=== PATIENT | male | born 1950 | race Caucasian/White ===

== ENCOUNTER 2018-09-16 08:22 | Emergency (ER) | payer OTHER, MEDICARE ==
--- NOTE | 2018-09-16 09:00 | ED Physician Chart ---
ED Chief Complaint/HPI - Patient Information Date Seen:: 09/16/18 Time Seen:: 08:45 Chief Complaint:: Low back pain for 2 days. History of Present Illness:: Pt is primarily [place] speaking. Interpretation is provided by my nurse Prasanna. Pt came in by private auto with his because of low back back after he impacted a stone fountain when he lost balance and fell off a 2-foot tall stepladder. Pt was evaluated and treated at an urgent care clinic. Pt still has significant back pain. His last analgesic use with Tylenol at about 0700 today. Pain can be precipitated and aggravated with movements. No LE weakness or numbness. No urinary or fecal incontinence or retention. Allergies:: Allergies Allergy/AdvReac Type Severity Reaction Status Date / Time morphine Allergy Verified 09/16/18 08:37 Vitals:: Vital Signs - 8 hr 09/16/18 08:41 Temp 96.4 F HR 64 RR 22 BP 159/79 O2 Sat % 100 Historian:: Patient Family MD/PCP:: Dr. Sanders LMP:: N/A Review:: Nurse's Note Reviewed ED Review of Systems - Review of Systems General/Constitutional: No fever, No weight loss, No weakness Skin: No skin lesions, No rash Head: No headache, No light-headedness Eyes: No loss of vision, No pain ENT: No earache, No nasal drainage, No sore throat Neck: No neck pain, No swelling, No stiffness Cardio Vascular: No chest pain Pulmonary: No SOB, No cough, No wheezing GI: No nausea, No vomiting, No diarrhea, No pain G/U: No dysuria, No frequency, No hematuria Musculoskeletal: Back pain Psychiatric: No prior psych history Allergic/Immuno: No urticaria, No angioedema Neurological: No syncope, No focal symptoms, No weakness, No paresthesia, No headache, No seizure, No dizziness, No confusion ED Past Medical History - Past Medical History Past Medical History: DM, Dyslipidemia Family History: None Social History: Non Smoker, No Alcohol, No Drug Use, , Other (lives with his .) Employment:: Retired. Surgical History: Appendectomy (about 11 y/a.) Psychiatricy History: None Medication: Reviewed Family Medical History - Family Member Mother History Unknown: Yes ED Physical Exam - Physical Examination General/Constitutional: Awake, Well-developed, well-nourished (male), Alert, No distress, GCS 15, Non-toxic appearing, Ambulatory Other Gen/Cons comments:: Breathes comfortably, speaks clearly, and interacts normally. Head: Atraumatic Eyes: Lids, conjuctiva normal, PERRL, EOMI Skin: Nl inspection, No ecchymosis, Well hydrated, No lymphadenopathy ENMT: External ears, nose nl, Nasal exam nl, Oropharynx nl Neck: Nontender, Full ROM w/o pain, No nuchal rigidity, No mass Respiratory: Nl effort/Exclusion, Clear to Auscultation, No Wheeze/Rhonchi/Rales Cardio Vascular: RRR, No murmur, gallop, rubs GI: No organomegaly, Normal BS's, Nondistended, No mass/bruits Other GI comments:: Tenderness with palpation at posterolateral aspect of left flank. There is mild swelling. No ecchymosis, erythema, or open wound. : No CVA tenderness Extremities: No tenderness or effusion, Full ROM, No edema Neuro/Psych: Alert/oriented (oriented x 3), DTR's symmetric, Normal sensory exam , Normal motor strength, Judgement/insight normal, Mood normal, No focal deficits Other Neuro/Psych comments:: Negative SLR's bilaterally. Other Misc comments:: There is tenderness with palpation at left upper lumbar, paralumbar region. No ecchymosis, erythema, gross deformity, swelling or open wound. ED Labs/Radiology/EKG Results - Lab Results Results: Laboratory Tests 09/16/18 09/16/18 09/16/18 08:30 09:20 09:20 WBC 7.1 RBC 5.12 Hgb 16.1 Hct 47.8 MCV 93.3 MCH 31.4 H MCHC Differential 33.6 RDW 13.0 Plt Count 130 L MPV 10.1 Neutrophils % 72.8 Lymphocytes % 19.7 L Monocytes % 6.1 Eosinophils % 0.5 Basophils % 0.9 PT 9.3 L INR 0.88 PTT (Actin FS) 25.2 L Sodium Potassium Chloride Carbon Dioxide Anion Gap BUN Creatinine Est GFR ( Amer) Est GFR (Non-Af Amer) BUN/Creatinine Ratio Glucose Calcium Total Bilirubin AST ALT Alkaline Phosphatase Total Protein Albumin Globulin Albumin/Globulin Ratio Urine Source CLEAN C Urine Color YELLOW Urine Clarity CLEAR Urine pH 6.0 Ur Specific [place] 1.015 Urine Protein TRACE Urine Glucose (UA) 100 H Urine Ketones NEGATIVE Urine Blood NEGATIVE Urine Nitrate NEGATIVE Urine Bilirubin NEGATIVE Urine Urobilinogen 0.2 Ur Leukocyte Esterase NEGATIVE Urine RBC 0-2 H Urine WBC 0-2 Ur Epithelial Cells RARE Urine Bacteria NONE SEEN 09/16/18 09:20 WBC RBC Hgb Hct MCV MCH MCHC Differential RDW Plt Count MPV Neutrophils % Lymphocytes % Monocytes % Eosinophils % Basophils % PT INR PTT (Actin FS) Sodium 134 L Potassium 4.5 Chloride 102 Carbon Dioxide 23.8 Anion Gap 12.7 BUN 25 Creatinine 1.3 Est GFR ( Amer) > 60.0 Est GFR (Non-Af Amer) 58.5 BUN/Creatinine Ratio 19.2 Glucose 145 H Calcium 9.2 Total Bilirubin 0.9 AST 31 ALT 57 H Alkaline Phosphatase 60 Total Protein 7.4 Albumin 4.5 Globulin 2.9 Albumin/Globulin Ratio 1.6 Urine Source Urine Color Urine Clarity Urine pH Ur Specific [place] Urine Protein Urine Glucose (UA) Urine Ketones Urine Blood Urine Nitrate Urine Bilirubin Urine Urobilinogen Ur Leukocyte Esterase Urine RBC Urine WBC Ur Epithelial Cells Urine Bacteria - Radiology Results Results: CT of abdomen/pelvis: No acute abnormalities. Enlarged prostate gland. Diverticulosis. Official report per Dr. Deo Mckeon, radiologist. CT Lumbar Spine: Questionable moderate to large disc protrusion/herniation L4-5 on the right side. Diffuse degenerative changes. Official report per Dr. Deo Mckeon, radiologist. ED Septic Shock - . Is Septic Shock (SBP<90, OR Lactate>4 mmol\L) present?: No - <6hrs of presentation: Vital Signs: Vital Signs - 8 hr 09/16/18 08:41 Temp 96.4 F HR 64 RR 22 BP 159/79 O2 Sat % 100 ED Reassessment (Disposition) - Reassessment Reassessment:: 10[address] Remaining lab results and CT reports just became available. Lab and CT findings have been reviewed with pt. Management plan has been discussed. Interpretation by my nurse Prasanna. 1105 Pt feels better and requests to go home now. Aftercare instructions have been given. Copies of lab results and CT reports have been given to pt to take to PCP Dr. Sanders for follow-up. Interpretation by my nurse Prasanna. Reassessment Condition:: Improved - Diagnosis Diagnosis:: Lumbar and left flank contusion. Stable. Degenerative joint disease of lumbar spine. Stable. Diabetes mellitus. Stable. - Aftercare/Follow up Instructions Aftercare/Follow-Up Instructions:: Refer to Discharge Instructions Notes:: Bed rest for today. May take Motrin 200 mg tab 3 to 4 tabs po q8h prn pain. Not to take first dose at least 6 hours after Toradol was given here. F/U with PCP Dr. Sanders in one day for recheck. Return to ER immediately if condition worsens or if any further questions/problems. Medication Prescribed:: None - Patient Disposition Discharge/Transfer:: Home Time:: 11:10 Condition at Disposition:: Stable, Improved
[2018-09-16 09:34] LABS: URINE SOURCE CLEAN C
[2018-09-16 09:45] LABS: INR 0.88 (0.5-1.4); PROTHROMBIN TIME (TEST) 9.3 SECONDS (9.5-11.5)
[2018-09-16 09:49] LABS: ALB/GLOB RATIO 1.6 (1.0-1.8); ALBUMIN 4.5 gm/dL (4.2-5.5); ALKALINE PHOSPHATASE 60 U/L (34-104); ANION GAP 12.7 (7.0-16.0); BILIRUBIN,TOTAL 0.9 mg/dL (0.3-1.0); BUN - UREA NITROGEN 25 mg/dL (7-25); CALCIUM SERUM 9.2 mg/dL (8.6-10.3); CARBON DIOXIDE 23.8 mEq/L (21.0-31.0); CHLORIDE 102 mEq/L (98-107); CREATININE - SERUM 1.3 mg/dL (0.7-1.3); GFR AFRICAN-AMERICAN > 60.0 ml/min (>90); GFR NON AFRICAN-AMERICAN 58.5 ml/min; GLUCOSE 145 mg/dL (70-105); POTASSIUM SERUM 4.5 mEq/L (3.5-5.1); SGOT 31 U/L (13-39); SGPT/ALT 57 U/L (7-52); SODIUM SERUM 134 mEq/L (136-145); TOTAL PROTEIN,SERUM 7.4 gm/dL (6.0-8.3)
[2018-09-16 09:49] LABS: URINE BILIRUBIN NEGATIVE (NEGATIVE); URINE BLOOD NEGATIVE (NEGATIVE); URINE GLUCOSE (UA) 100 mg/dL (NEGATIVE); URINE KETONE NEGATIVE (NEGATIVE); URINE LEUKOCYTE ESTERASE NEGATIVE (NEGATIVE); URINE MICROSCOPIC INDICATED? YES; URINE NITRATE NEGATIVE (NEGATIVE); URINE PROTEIN TRACE mg/dL (NEGATIVE); URINE UROBILINOGEN 0.2 E.U./dL (0.2 - 1.0)
--- NOTE | 2018-09-16 09:59 | Diagnostic Imaging Report ---
CT scan abdomen and pelvis without intravenous contrast HISTORY: Pain, trauma Total DLP equals 377 CTDI equals 7.4 Axial sections were obtained from the xiphoid process down to the pubic symphysis. No significant focal hepatic lesions are seen. The spleen appears normal. No focal abnormality seen within the pancreas. The adrenal glands appear normal. No focal renal lesions. No calculi. No hydronephrosis. No significant bowel dilatation. Colonic diverticula noted. Radiodensity noted along the margin of the cecum which may be related to prior appendectomy. Correlation with surgical history is needed. There is preservation of normal fat planes within the pelvis. No abnormal soft tissue masses or abnormal fluid collections. There is moderate enlargement of the prostate gland with encroachment on the floor of the urinary bladder. No other abnormal masses or fluid collections. IMPRESSION: 1. No acute abnormalities 2. Enlarged prostate gland 3. Diverticulosis
--- NOTE | 2018-09-16 10:02 | Diagnostic Imaging Report ---
CT scan lumbar spine HISTORY: Pain, trauma Total DLP equals 840 CTDI equals 30.6 Axial sections were obtained through the lumbar spine. Additional sagittal and coronal reformatted images are provided. Alignment is normal. Minimal narrowing of the L4-5 interspace. Degenerative spur formation noted about the anterior margins of multiple vertebrae. There is suggestion of a moderate to large the 4 to 5 mm) extradural density originating from the L4-5 level extending down along the right posterior margin of the body of L5. Disc protrusion/herniation cannot be excluded. An MRI exam would provide additional assessment and evaluation. There appears to be neural foraminal encroachment on the right side. IMPRESSION: 1. Questionable moderate to large disc protrusion/herniation L4-5 on the right side. An MRI examination would provide additional assessment and evaluation 2. Diffuse degenerative changes
[2018-09-16 10:05] LABS: URINE CLARITY CLEAR (CLEAR); URINE COLOR YELLOW
[2018-09-16 10:06] LABS: URINE BACTERIA NONE SEEN /hpf (NONE SEEN); URINE EPITHELIAL CELLS RARE /lpf (FEW); URINE RBC 0-2 /hpf (0-5); URINE WBC 0-2 /hpf (0-5)
[2018-09-16 10:18] LABS: % BASOPHILS 0.9 % (0.0-2.0); % EOSINOPHILS 0.5 % (0.0-5.0); % LYMPHOCYTES 19.7 % (20.0-50.0); % MONOCYTES 6.1 % (2.0-10.0); % NEUTROPHILS 72.8 % (40.0-80.0); BASOPHILE ABSOLUTE 0.1 Th/cumm (0-0.2); HEMATOCRIT 47.8 % (41.0-60); HEMOGLOBIN 16.1 gm/dL (12-16); LYMPHOCYTE ABSOLUTE 1.4 Th/cmm (1.5-3.0); MEAN CELL VOLUME 93.3 fl (80-99); MEAN CORPUSCULAR HEMOGLOBIN 31.4 pg (27.0-31.0); MEAN CORPUSCULAR HGB CONC 33.6 pg (28.0-36.0); MEAN PLATELET VOLUME 10.1 fl; MONOCYTE ABSOLUTE 0.4 Th/cmm (0.3-1.0); NEUTROPHILE ABSOLUTE 5.2 Th/cmm (1.8-8.0); PLATELET COUNT 130 Th/cmm (150-400); RED BLOOD COUNT 5.12 Mil/cmm (3.80-5.80); WHITE BLOOD COUNT 7.1 Th/cmm (4.8-10.8)
== END 2018-09-16 11:10 | disposition home or self-care (01) ==
LOC: ER 08:22
DX: S30.0XXA Contusion of lower back and pelvis, initial encounter (principal); S30.1XXA Contusion of abdominal wall, initial encounter; M51.36 Other intervertebral disc degeneration, lumbar region; E11.9 Type 2 diabetes mellitus without complications; E78.5 Hyperlipidemia, unspecified; Z90.49 Acquired absence of other specified parts of digestive tract; Z88.5 Allergy status to narcotic agent; W11.XXXA Fall on and from ladder, initial encounter; Y93.89 Activity, other specified; Y92.89 Other specified places as the place of occurrence of the external cause; Y99.8 Other external cause status
CPT/HCPCS: 99284; 96372; 72131; 74176; 36415; 36416; 85025; 85610; 81001; 80053; J1885